=== PATIENT | female | born 1945 | race Caucasian/White ===

== ENCOUNTER 2021-01-26 23:02 | Inpatient (IN) | payer MEDICARE ==
[2021-01-27 03:38] VITALS: BMI 20.5
[2021-01-27] MEDS ORDERED: Dextrose 5% in Water 1,000 ML IV PRN (03:58)
[2021-01-27] MEDS ORDERED: Ondansetron PF 4 MG/2 ML Vial IVP PRN ×2 (03:58→14:00)
[2021-01-27] MEDS ORDERED: hydrALAZINE 20 MG/ML VIAL SLOW IVP PRN (03:58)
[2021-01-27] MEDS ORDERED: Dextrose 50% Abboject 50 ML SYRINGE SLOW IVP PRN (03:58)
[2021-01-27] MEDS ORDERED: Morphine 4 MG/ML VIAL SLOW IVP PRN (03:58)
[2021-01-27] MEDS ORDERED: Cyclobenzaprine 10 MG TAB PO PRN (04:02)
[2021-01-27] MEDS ORDERED: traMADol HCl 50 MG TAB PO PRN ×2 (04:02)
[2021-01-27] MEDS ORDERED: Lactated Ringer's 1,000 ML IV SCH (04:15)
[2021-01-27] MEDS: Acetaminophen 500 MG TAB PO SCH ×4 (06:46→22:59)
[2021-01-27] MEDS: Ibuprofen 200 MG TAB PO SCH ×3 (06:47→20:11)
[2021-01-27 07:04] LABS: Anion Gap 11 mmol/L (10-20); BUN (Urea Nitrogen) 14 mg/dL (9.8-20.1); Calc. Creatinine Clearance 46 mL/min (70-130); Calcium 9.4 mg/dL (7.8-10.44); Carbon Dioxide 30 mmol/L (23-31); Chloride 101 mmol/L (98-107); Glucose 90 mg/dL (83-110); Magnesium 1.9 mg/dL (1.6-2.6); Phosphorus 3.1 mg/dL (2.3-4.7); Potassium 3.1 mmol/L (3.5-5.1); Sodium 139 mmol/L (136-145)
[2021-01-27] MEDS ORDERED: CEFAZOLIN 2 GM in Premix Bag 1 BAG IVPB SCH (07:45)
[2021-01-27] MEDS ORDERED: Potassium Chloride 40 MEQ in Sodium Chloride 0.9% 250 ML 250 ML IVPB SCH (08:15)
[2021-01-27] MEDS: Gabapentin 100 MG CAP PO SCH ×3 (08:18→20:11)
[2021-01-27] MEDS: Famotidine 20 MG TAB PO SCH (08:18)
[2021-01-27] MEDS: Senokot S 8.6-50 MG TAB PO SCH ×2 (08:20→20:11)
[2021-01-27] MEDS: Polyethylene Glycol 3350 17 GM Packet PO SCH (08:20)
[2021-01-27] MEDS ORDERED: Midazolam HCl 2 mg/2 ml Vial ONE (12:46)
[2021-01-27] MEDS ORDERED: Fentanyl 100 MCG/2 ML VIAL ONE (12:46)
[2021-01-27] MEDS ORDERED: Ketorolac Tromethamine 30 MG/ML VIAL IVP PRN (14:00)
[2021-01-27] MEDS ORDERED: Zolpidem Tartrate 5 MG TAB PO PRN (14:00)
[2021-01-27] MEDS ORDERED: Promethazine HCl 25 MG/ML VIAL IM PRN (14:00)
[2021-01-27] MEDS ORDERED: HYDROcodone/Acetaminophen 5/325 mg Tablet PO PRN ×2 (14:00)
[2021-01-27] MEDS ORDERED: Ropivacaine 0.2% 550 ML 550 ML NERVE BLCK SCH (14:00)
[2021-01-27] MEDS ORDERED: PROPOFOL 200 MG/20 ML VIAL ONE (14:14)
[2021-01-27] MEDS ORDERED: Ondansetron PF 4 MG/2 ML Vial ONE (14:14)
[2021-01-27] MEDS ORDERED: ePHEDrine 50 MG/ML VIAL ONE (14:14)
[2021-01-27] MEDS ORDERED: PHENYLEPHRINE-NS 100 MCG/ML 10 ML SYRINGE ONE (14:14)
[2021-01-27] MEDS ORDERED: Dexamethasone 20 MG/5 ML VIAL ONE (14:14)
[2021-01-27] MEDS ORDERED: Lidocaine 1% PF 5 ML VIAL ONE (14:14)
[2021-01-27] MEDS ORDERED: Bupivacaine HCl 0.5%/Epinephrine 1:200,000/PF 30 ml Vial ONE (14:14)
[2021-01-28 06:27] LABS: Anion Gap 14 mmol/L (10-20); BUN (Urea Nitrogen) 20 mg/dL (9.8-20.1); Calc. Creatinine Clearance 42 mL/min (70-130); Calcium 8.8 mg/dL (7.8-10.44); Carbon Dioxide 22 mmol/L (23-31); Chloride 106 mmol/L (98-107); Glucose 105 mg/dL (83-110); Phosphorus 3.1 mg/dL (2.3-4.7); Potassium 4.5 mmol/L (3.5-5.1); Sodium 137 mmol/L (136-145)
[2021-01-28] MEDS: Acetaminophen 500 MG TAB PO SCH ×3 (06:34→17:43)
[2021-01-28 07:03] LABS: #Eosinphils 0.2 thou/uL (0.0-0.7); #Lymphocytes 1.6 thou/uL (1.20-3.40); #Monocytes 0.8 thou/uL (0.11-0.59); #Neutrophils 5.5 thou/uL (1.40-6.50); %Basophils 0.5 % (0.0-1.0); %Eosinophils 1.9 % (0.0-10.0); %Lymphocytes 19.8 % (21.0-51.0); %Monocytes 9.7 % (0.0-10.0); %Neutrophils 68.1 % (42.0-75.0); Hemoglobin 10.4 g/dL (12.0-16.0); Mean Corpuscular HGB CONC 32.5 g/dL (32.0-36.0); Mean Corpuscular Volume 95.5 fL (78.0-98.0); Mean Platelet Volume 7.8 fL (7.4-10.4); Platelet Count 190 thou/uL (130-400); RBC Distribution Width 13.3 % (11.5-14.5); Red Blood Cell (RBC) Count 3.35 mill/uL (4.20-5.40); White Blood Cell (WBC) Count 8.1 thou/uL (4.8-10.8)
[2021-01-28] MEDS: Polyethylene Glycol 3350 17 GM Packet PO SCH (08:18)
[2021-01-28] MEDS: Senokot S 8.6-50 MG TAB PO SCH ×2 (08:18→20:30)
[2021-01-28] MEDS: Famotidine 20 MG TAB PO SCH (08:19)
[2021-01-28] MEDS: Gabapentin 100 MG CAP PO SCH ×3 (08:19→20:29)
[2021-01-28] MEDS ORDERED: Levothyroxine Sodium 112 MCG TAB PO SCH (10:45)
[2021-01-28] MEDS: Simvastatin 5 MG TAB PO SCH (20:29)
[2021-01-28] MEDS: Enoxaparin Sodium 30 MG/0.3 ML SYRINGE SC SCH (21:24)
[2021-01-29] MEDS: Acetaminophen 500 MG TAB PO SCH ×5 (00:03→22:57)
[2021-01-29] MEDS: Sodium Chloride 0.9% 1,000 ML IV SCH ×2 (00:21→11:25)
[2021-01-29] MEDS: traMADol HCl 50 MG TAB PO PRN ×2 (04:18→11:25)
[2021-01-29] MEDS: Levothyroxine Sodium 112 MCG TAB PO SCH (05:22)
[2021-01-29 06:46] LABS: Anion Gap 10 mmol/L (10-20); BUN (Urea Nitrogen) 13 mg/dL (9.8-20.1); Calc. Creatinine Clearance 51 mL/min (70-130); Calcium 8.6 mg/dL (7.8-10.44); Carbon Dioxide 26 mmol/L (23-31); Chloride 106 mmol/L (98-107); Glucose 92 mg/dL (83-110); Magnesium 1.8 mg/dL (1.6-2.6); Phosphorus 3.1 mg/dL (2.3-4.7); Potassium 3.9 mmol/L (3.5-5.1); Sodium 138 mmol/L (136-145)
[2021-01-29] MEDS ORDERED: Fentanyl 100 MCG/2 ML VIAL ONE ×2 (07:13→10:24)
[2021-01-29] MEDS: Enoxaparin Sodium 30 MG/0.3 ML SYRINGE SC SCH ×2 (07:44→20:46)
[2021-01-29] MEDS: Gabapentin 100 MG CAP PO SCH ×3 (07:44→20:45)
[2021-01-29] MEDS ORDERED: Neomycin-Polymyxin 1 ML AMP ONE (07:45)
[2021-01-29] MEDS: Losartan/Hydrochlorothiazide 100 mg/25 mg Tablet PO SCH (07:45)
[2021-01-29] MEDS ORDERED: Bupivacaine PF 0.5% 30 ML VIAL ONE (07:45)
[2021-01-29] MEDS: Polyethylene Glycol 3350 17 GM Packet PO SCH (07:47)
[2021-01-29] MEDS: Senokot S 8.6-50 MG TAB PO SCH ×2 (07:47→20:46)
[2021-01-29] MEDS ORDERED: Ropivacaine 0.5% HCl/PF (150 MG/30 ML VIAL) ONE (08:02)
[2021-01-29] MEDS ORDERED: ePHEDrine 50 MG/ML VIAL ONE (08:21)
[2021-01-29] MEDS ORDERED: PROPOFOL 200 MG/20 ML VIAL ONE (08:21)
[2021-01-29] MEDS ORDERED: Ondansetron PF 4 MG/2 ML Vial ONE (08:21)
[2021-01-29] MEDS ORDERED: Dexamethasone 20 MG/5 ML VIAL ONE (08:21)
[2021-01-29 10:11] LABS: Band 35 % (5-11); Eosinophils 4 % (0-10); Hemoglobin 9.3 g/dL (12.0-16.0); Lymphocytes 20 % (21-51); MDiff Complete? YES; Mean Corpuscular HGB CONC 32.2 g/dL (32.0-36.0); Mean Corpuscular Volume 96.2 fL (78.0-98.0); Mean Platelet Volume 7.7 fL (7.4-10.4); Metamyelocyte 6 % (0-0); Monocytes 1 % (0-10); Myelocyte 3 % (0-0); Neutrophil 31 % (42-75); Platelet Count 196 thou/uL (130-400); RBC Distribution Width 13.5 % (11.5-14.5); Red Blood Cell (RBC) Count 3.01 mill/uL (4.20-5.40); White Blood Cell (WBC) Count 8.6 thou/uL (4.8-10.8)
[2021-01-29] MEDS ORDERED: Ondansetron HCl/PF 4 MG/2 ML Vial IVP PRN (10:21)
[2021-01-29] MEDS ORDERED: Promethazine HCl 25 MG/ML VIAL IVPB PRN (10:21)
[2021-01-29] MEDS ORDERED: HYDROmorphone 2 MG/ML VIAL SLOW IVP PRN (10:21)
[2021-01-29] MEDS ORDERED: Promethazine HCl 25 MG/ML VIAL IM PRN (10:21)
[2021-01-29] MEDS: ceFAZolin Sodium/D5W 2 GM in Premix Bag 1 BAG IVPB SCH (16:20)
[2021-01-29] MEDS: Simvastatin 5 MG TAB PO SCH (20:46)
[2021-01-29] MEDS: traZODone HCl 50 MG TAB PO SCH (22:57)
[2021-01-30] MEDS: traMADol HCl 50 MG TAB PO PRN (00:33)
[2021-01-30] MEDS: ceFAZolin Sodium/D5W 2 GM in Premix Bag 1 BAG IVPB SCH ×2 (00:49→08:42)
[2021-01-30] MEDS: Levothyroxine Sodium 112 MCG TAB PO SCH (05:57)
[2021-01-30] MEDS: Acetaminophen 500 MG TAB PO SCH ×4 (05:57→23:23)
[2021-01-30 06:04] LABS: #Basophils 0.1 thou/uL (0.0-0.2); #Eosinphils 0.4 thou/uL (0.0-0.7); #Lymphocytes 2.9 thou/uL (1.20-3.40); #Monocytes 0.9 thou/uL (0.11-0.59); #Neutrophils 4.9 thou/uL (1.40-6.50); %Basophils 0.7 % (0.0-1.0); %Eosinophils 4.3 % (0.0-10.0); %Lymphocytes 31.4 % (21.0-51.0); %Monocytes 9.8 % (0.0-10.0); %Neutrophils 53.8 % (42.0-75.0); Hemoglobin 9.4 g/dL (12.0-16.0); Mean Corpuscular HGB CONC 32.6 g/dL (32.0-36.0); Mean Corpuscular Hemoglobin 31.6 pg (27.0-31.0); Mean Platelet Volume 7.4 fL (7.4-10.4); Platelet Count 168 thou/uL (130-400); RBC Distribution Width 13.5 % (11.5-14.5); Red Blood Cell (RBC) Count 2.98 mill/uL (4.20-5.40); White Blood Cell (WBC) Count 9.1 thou/uL (4.8-10.8)
[2021-01-30 06:27] LABS: Anion Gap 9 mmol/L (10-20); BUN (Urea Nitrogen) 13 mg/dL (9.8-20.1); Calc. Creatinine Clearance 46 mL/min (70-130); Calcium 8.6 mg/dL (7.8-10.44); Carbon Dioxide 28 mmol/L (23-31); Chloride 110 mmol/L (98-107); Glucose 99 mg/dL (83-110); Magnesium 1.9 mg/dL (1.6-2.6); Phosphorus 3.3 mg/dL (2.3-4.7); Potassium 4.2 mmol/L (3.5-5.1); Sodium 143 mmol/L (136-145)
[2021-01-30] MEDS: Polyethylene Glycol 3350 17 GM Packet PO SCH (08:42)
[2021-01-30] MEDS: Senokot S 8.6-50 MG TAB PO SCH ×2 (08:43→20:24)
[2021-01-30] MEDS: Gabapentin 100 MG CAP PO SCH ×3 (08:44→20:24)
[2021-01-30] MEDS: Losartan/Hydrochlorothiazide 100 mg/25 mg Tablet PO SCH (08:45)
[2021-01-30] MEDS: Enoxaparin Sodium 30 MG/0.3 ML SYRINGE SC SCH ×2 (08:45→20:24)
[2021-01-30] MEDS ORDERED: Magnesium 2 GM/50 ML 2 GM in Premix Bag 1 BAG IVPB SCH (12:45)
[2021-01-30] MEDS: Simvastatin 5 MG TAB PO SCH (20:24)
[2021-01-30] MEDS: traZODone HCl 50 MG TAB PO SCH (20:24)
[2021-01-31] MEDS: Levothyroxine Sodium 112 MCG TAB PO SCH (05:59)
[2021-01-31] MEDS: Acetaminophen 500 MG TAB PO SCH ×4 (05:59→23:33)
[2021-01-31 07:22] LABS: #Basophils 0.1 thou/uL (0.0-0.2); #Eosinphils 0.6 thou/uL (0.0-0.7); #Lymphocytes 2.3 thou/uL (1.20-3.40); #Monocytes 0.7 thou/uL (0.11-0.59); #Neutrophils 4.8 thou/uL (1.40-6.50); %Basophils 0.6 % (0.0-1.0); %Eosinophils 7.1 % (0.0-10.0); %Lymphocytes 27.3 % (21.0-51.0); %Monocytes 8.5 % (0.0-10.0); %Neutrophils 56.4 % (42.0-75.0); Hemoglobin 9.8 g/dL (12.0-16.0); Mean Corpuscular HGB CONC 31.7 g/dL (32.0-36.0); Mean Corpuscular Hemoglobin 30.5 pg (27.0-31.0); Mean Corpuscular Volume 96.2 fL (78.0-98.0); Mean Platelet Volume 7.7 fL (7.4-10.4); Platelet Count 224 thou/uL (130-400); RBC Distribution Width 13.7 % (11.5-14.5); Red Blood Cell (RBC) Count 3.21 mill/uL (4.20-5.40); White Blood Cell (WBC) Count 8.5 thou/uL (4.8-10.8)
[2021-01-31] MEDS: Enoxaparin Sodium 30 MG/0.3 ML SYRINGE SC SCH ×2 (08:30→20:17)
[2021-01-31] MEDS: Gabapentin 100 MG CAP PO SCH ×3 (08:32→20:17)
[2021-01-31] MEDS: Polyethylene Glycol 3350 17 GM Packet PO SCH (08:32)
[2021-01-31] MEDS: Losartan/Hydrochlorothiazide 100 mg/25 mg Tablet PO SCH (08:32)
[2021-01-31] MEDS: Senokot S 8.6-50 MG TAB PO SCH ×2 (08:33→20:17)
[2021-01-31] MEDS: traZODone HCl 50 MG TAB PO SCH (20:17)
[2021-01-31] MEDS: Simvastatin 5 MG TAB PO SCH (20:17)
[2021-01-31] MEDS: traMADol HCl 50 MG TAB PO PRN (20:22)
[2021-02-01] MEDS: Acetaminophen 500 MG TAB PO SCH ×2 (05:58→13:07)
[2021-02-01] MEDS: Levothyroxine Sodium 112 MCG TAB PO SCH (05:58)
[2021-02-01 08:18] VITALS: TEMP 98.3
[2021-02-01] MEDS: Losartan/Hydrochlorothiazide 100 mg/25 mg Tablet PO SCH (09:10)
[2021-02-01] MEDS: Gabapentin 100 MG CAP PO SCH (09:10)
[2021-02-01] MEDS: Senokot S 8.6-50 MG TAB PO SCH (09:10)
[2021-02-01] MEDS: Polyethylene Glycol 3350 17 GM Packet PO SCH (09:11)
[2021-02-01] MEDS: Enoxaparin Sodium 30 MG/0.3 ML SYRINGE SC SCH (09:18)
[2021-02-01 12:13] VITALS: BP 148/77
[2021-02-01] MEDS: traMADol HCl 50 MG TAB PO PRN (13:20)
== END 2021-02-01 15:05 | disposition swing bed (61) | DRG 494 ==
LOC: SJJU 23:02
PROVIDERS: ADMIT Specialist; ATTEND Surgery
PROC: 0QSGXZZ Reposition Right Tibia, External Approach (ICD-10-PCS; principal; 2021-01-27)
PROC: 2W3QX1Z Immobilization of Right Lower Leg using Splint (ICD-10-PCS; 2021-01-27)
PROC: 0QSJ04Z Reposition Right Fibula with Internal Fixation Device, Open Approach (ICD-10-PCS; 2021-01-29)
PROC: 0QSG04Z Reposition Right Tibia with Internal Fixation Device, Open Approach (ICD-10-PCS; 2021-01-29)
DX: S82.851A Displaced trimalleolar fracture of right lower leg, initial encounter for closed fracture (principal); I10 Essential (primary) hypertension; E78.5 Hyperlipidemia, unspecified; J45.909 Unspecified asthma, uncomplicated; E03.9 Hypothyroidism, unspecified; E87.6 Hypokalemia; F32.9 Major depressive disorder, single episode, unspecified; K21.9 Gastro-esophageal reflux disease without esophagitis; W18.30XA Fall on same level, unspecified, initial encounter; Z60.2 Problems related to living alone; H35.9 Unspecified retinal disorder; Z79.899 Other long term (current) drug therapy; Z88.1 Allergy status to other antibiotic agents; Y92.009 Unspecified place in unspecified non-institutional (private) residence as the place of occurrence of the external cause
CPT/HCPCS: 36415; 71045; 76000; 80048; 83735; 84100; 85007; 85025; 85027; A4306; C1713; J0690; J1100; J1650; J2250; J2405; J2704; J2795; J3010; J3475; J3480; J3490; J7050; J7120; S0020

== ENCOUNTER 2021-07-06 13:46 | Outpatient (CLI) | payer MEDICARE | END 2021-07-06 13:47 | disposition home or self-care (01) | LOC: BICMAMMO 13:46 | PROVIDERS: ATTEND Family Medicine | DX: Z13.820 Encounter for screening for osteoporosis (principal); Z87.39 Personal history of other diseases of the musculoskeletal system and connective tissue; M81.0 Age-related osteoporosis without current pathological fracture; M85.89 Other specified disorders of bone density and structure, multiple sites | CPT/HCPCS: 77080 ==

== ENCOUNTER 2023-11-08 12:40 | Emergency (ER) | payer MEDICARE, OTHER ==
[2023-11-08] MEDS ORDERED: Ketorolac Tromethamine 30 MG (1 mL) VIAL ONE (14:15)
[2023-11-08] MEDS ORDERED: predniSONE 20 MG TAB ONE (14:15)
[2023-11-08] MEDS ORDERED: Orphenadrine Citrate 60 MG/2 ML VIAL ONE (14:15)
== END 2023-11-08 15:10 | disposition home or self-care (01) ==
LOC: ERS 12:40
DX: M54.42 Lumbago with sciatica, left side (principal); M54.41 Lumbago with sciatica, right side; I10 Essential (primary) hypertension
CPT/HCPCS: J1885; J2360; 96374; 96375; J7512

== ENCOUNTER 2023-12-02 09:40 | Outpatient (CLI) | payer OTHER ==
[2023-12-02] MEDS ORDERED: Magnevist 469MG/ML 20 ML VIAL ONE (10:59)
== END 2023-12-02 09:41 | disposition home or self-care (01) ==
LOC: MRI 09:40
PROVIDERS: ATTEND Registered Nurse
DX: M54.50 Low back pain, unspecified (principal); S32.10XA Unspecified fracture of sacrum, initial encounter for closed fracture; M43.18 Spondylolisthesis, sacral and sacrococcygeal region; G95.19 Other vascular myelopathies; S32.029A Unspecified fracture of second lumbar vertebra, initial encounter for closed fracture; S32.039A Unspecified fracture of third lumbar vertebra, initial encounter for closed fracture; S32.049A Unspecified fracture of fourth lumbar vertebra, initial encounter for closed fracture
CPT/HCPCS: 72158; A9579

== ENCOUNTER 2025-02-25 07:13 | Outpatient (CLI) | payer OTHER | END 2025-02-25 07:14 | disposition home or self-care (01) | LOC: ULT 07:13 | PROVIDERS: ATTEND Family Medicine | DX: N18.31 Chronic kidney disease, stage 3a (principal); N28.89 Other specified disorders of kidney and ureter | CPT/HCPCS: 76770 ==